=== PATIENT | female | born 1960 | race Caucasian/White ===

== ENCOUNTER 2016-06-29 16:15 | Outpatient (CLI) | payer OTHER | END 2016-06-29 16:16 | disposition home or self-care (01) | DX: L65.9 Nonscarring hair loss, unspecified (principal) ==

== ENCOUNTER 2017-02-22 06:24 | Outpatient (CLI) | payer OTHER ==
[2017-02-22 06:44] LABS: BASOPHILS % (AUTO) 0.6 %; EOSINOPHILS # (AUTO) 0.2 10^3/uL (0.0-0.7); EOSINOPHILS % (AUTO) 2.5 %; HCT - HEMATOCRIT 43.5 % (37.0-47.0); HGB - HEMOGLOBIN 14.9 g/dL (12.0-16.0); LYMPHOCYTES # (AUTO) 2.9 10^3/uL (1.5-3.5); LYMPHOCYTES % (AUTO) 35.8 %; MEAN CORPUSCULAR HEMOGLOBIN 30.1 pg (27.0-31.0); MEAN CORPUSCULAR HGB CONC 34.2 g/dL (32.0-36.0); MEAN PLATELET VOLUME 7.4 fL (7.9-10.8); MONOCYTES # (AUTO) 0.6 10^3/uL (0.0-1.0); NEUTROPHILS # (AUTO) 4.4 10^3/uL (1.5-6.6); NEUTROPHILS % (AUTO) 54.1 %; NUCLEATED RED BLOOD CELLS AUTO 0.1 /100WBC; RED BLOOD COUNT 4.94 10^6/uL (4.20-5.40); RED CELL DISTRIBUTION WIDTH 12.5 % (12.0-15.0); UNCORRECTED WHITE BLOOD COUNT 8.1 x10^3/uL; WHITE BLOOD COUNT 8.1 x10^3/uL (4.8-10.8)
[2017-02-22 07:03] LABS: ALBUMIN/GLOBULIN RATIO 1.3 (1.0-2.2); BILIRUBIN,TOTAL 0.9 mg/dL (0.2-1.0); CALCIUM 9.7 mg/dL (8.5-10.3); CREATININE 0.9 mg/dL (0.4-1.0); TOTAL PROTEIN 7.5 g/dL (6.7-8.2)
== END 2017-02-22 06:25 | disposition home or self-care (01) ==
LOC: LAB 06:24
PROVIDERS: ATTEND Family Medicine
DX: D50.9 Iron deficiency anemia, unspecified (principal)
CPT/HCPCS: 36415; 80053; 83540; 84466; 85025

== ENCOUNTER 2017-08-15 08:58 | Emergency (ER) | payer OTHER ==
[2017-08-15 10:27] VITALS: BP 150/87
--- NOTE | 2017-08-15 11:01 | ED Physician Documentation ---
PD HPI Fall - Stated complaint Stated Complaint: JAW PX/FALL - Chief complaint Chief Complaint: Ext Problem - History obtained from History obtained from: Patient, Other (employee health) - History of Present Illness Mechanism of injury: Slipped Fall distance: Standing position Where injury occurred: Work (in the parking lot on the way in to work) Timing - onset: Today Injury(ies) location: Face, Right Upper Extremity, Left Uppper Extremity, Left Lower Extremity Quality of pain: Pain Associated symptoms: No: LOC, AMS, Amnesia, Seizures, Ear drainage, Nasal drainage, Neck pain, Weakness, Paresthesias, Dyspnea, Nausea / vomiting, Hematemesis, Abdominal distension Symptoms improve with: Rest Worsens with: Movement, Palpation Contributing factors: No: Anticoagulated Similar symptoms before: Has not had sx before Recently seen: Not recently seen - Additional information Additional information: 56-year-old female was in her usual state of health on her way to work this morning in the parking lot she slipped and fell landing on her chin on the left side. She struck her left hand on the ground as well at the same time and she ended up on her back looking up. She complains of some pain in her jaw on the right side at the TMJ and over the mastoid on the right. She is complaining of some pain in the right shoulder and in the left wrist as well as the left knee. None of these pains are severe or cause restriction of movement. She is not having any malocclusion she does not have any clicking or popping when she opens her jaw she has not had nausea she has not had loss of consciousness she has had transient dizziness that is resolved. Review of Systems Constitutional: denies: Fever Eyes: denies: Decreased vision Ears: denies: Ear pain Nose: denies: Rhinorrhea / runny nose, Congestion Throat: denies: Sore throat Cardiac: denies: Chest pain / pressure Respiratory: denies: Dyspnea, Cough GI: denies: Abdominal Pain, Nausea, Vomiting : denies: Dysuria, Frequency Skin: denies: Rash Musculoskeletal: reports: Neck pain (chronic and unchanged), Joint pain. 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 : None HEENT: None Psych: None Musculoskeletal: Other Derm: None - Past Surgical History Past Surgical History: Yes General: Colonoscopy, EGD Ortho: Other /BUS ESCORT: Hysterectomy - Present Medications Home Medications: Ambulatory Orders Medication Instructions Recorded Confirmed Gabapentin [Neurontin] 300 mg PO TID 10/24/12 10/15/15 Losartan [Cozaar] 100 mg PO DAILY 10/24/12 10/15/15 Dicyclomine HCl [Bentyl] 10 mg PO Q6-8H PRN #30 capsule 11/12/12 10/15/15 busPIRone [Buspar] 7.5 mg PO BID 10/15/15 10/15/15 Famotidine 20 mg PO DAILY 08/15/17 - Allergies Allergies/Adverse Reactions: Allergies Allergy/AdvReac Type Severity Reaction Status Date / Time sulfamethoxazole Allergy Intermediate Rash Verified 08/15/17 09:09 [From ] trimethoprim [From ] Allergy Intermediate Rash Verified 08/15/17 09:09 naproxen AdvReac Intermediate muscle Verified 08/15/17 09:09 tightness - Social History Does the pt smoke?: No Smoking Status: Never smoker Does the pt drink ETOH?: No Does the pt have substance abuse?: No - Immunizations Immunizations are current?: Yes - POLST Patient has POLST: No PD ED PE NORMAL - Vitals Vital signs reviewed: Yes (hypertensive) - General General: Alert and oriented X 3, No acute distress, Well developed/nourished - HEENT HEENT: Atraumatic, PERRL, EOMI, Ears normal, Moist mucous membranes, Other ( There is mild point tenderness to the TMJ on the right and to the mastoid area. There is no swelling or crepitance and the patient is able to open her mouth wide without clicking or popping. She has no malocclusion. ) - Neck Neck: Supple, no meningeal sign, No bony TTP - Cardiac Cardiac: RRR, No murmur - Respiratory Respiratory: No respiratory distress, Clear bilaterally - Abdomen Abdomen: Soft, Non tender - Back Back: No CVA TTP, No spinal TTP - Derm Derm: Normal color, Warm and dry, No rash - Extremities Extremities: No deformity, No edema, Other (There is no specific tenderness to the right shoulder joint and she is able to activly move the shoulder in a full ROM and hold the shoulde in abduction. distal n/v is intact. The left wrist is similarly without significant pain and no swelling with normal ROM . The left knee is with stable ligmamnets and no evidnece of effusion. 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 I discussed that with the patient utilization of x-rays for evaluation of these area and between the 2 of us with shared decision making we have decided to forego x-ray examination at this time is it likely not demonstrate fracture. She does have a primary care doctor that she can follow-up with should she have progression of her symptoms that are beyond what is expected. Departure - Departure Disposition: 01 Home, Self Care Clinical Impression: Contusion of jaw Qualifiers: Encounter type: initial encounter Qualified Code(s): S00.83XA - Contusion of other part of head, initial encounter Right shoulder strain Qualifiers: Encounter type: initial encounter Qualified Code(s): S46.911A - Strain of unspecified muscle, fascia and tendon at shoulder and upper arm level, right arm , initial encounter Strain of left knee Qualifiers: Encounter type: initial encounter Qualified Code(s): S86.912A - Strain of unspecified muscle(s) and tendon(s) at lower leg level, left leg, initial encounter Strain of wrist, left Qualifiers: Encounter type: initial encounter Qualified Code(s): S66.912A - Strain of unspecified muscle, fascia and tendon at wrist and hand level, left hand, initial encounter Condition: Stable Instructions: ED Mechanical Fall Follow-Up: Neri Mcghee MD [Primary Care Provider] - Comments: Today we have documented the following areas of injury from this fall in the parking lot. There does appear to be a strain of the right shoulder the left wrist and the left knee. There is a contusion to the jaw which has resulted in pain to the right TMJ and there is some pain over the mastoid area. None of these areas are concerning enough to perform x-rays. There may be some progression of symptoms over the next 2 days and for symptoms that are intolerable follow-up with Dr. Mcghee or potential x-rays.
== END 2017-08-15 11:18 | disposition home or self-care (01) ==
LOC: ED 08:58
DX: S00.83XA Contusion of other part of head, initial encounter (principal); S46.911A Strain of unspecified muscle, fascia and tendon at shoulder and upper arm level, right arm, initial encounter; S66.912A Strain of unspecified muscle, fascia and tendon at wrist and hand level, left hand, initial encounter; S86.912A Strain of unspecified muscle(s) and tendon(s) at lower leg level, left leg, initial encounter; W01.0XXA Fall on same level from slipping, tripping and stumbling without subsequent striking against object, initial encounter; Y92.481 Parking lot as the place of occurrence of the external cause
CPT/HCPCS: 99283

== ENCOUNTER 2017-09-19 13:50 | Emergency (ER) | payer OTHER ==
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
[2017-09-19] MEDS ORDERED: DEXAMETHASONE 10 MG/ML VIAL PO STA (14:47)
[2017-09-19] MEDS ORDERED: ONDANSETRON ODT 4 MG TABLET TL STA (14:47)
[2017-09-19] MEDS ORDERED: HYDROcod/ACETAM 5/325 MG TABLET PO STA (14:47)
[2017-09-19] MEDS ORDERED: CHERRY SYRUP 10 ML UDC PO ONE (15:07)
[2017-09-19 15:54] VITALS: BP 153/99
--- NOTE | 2017-09-19 17:23 | Ultrasound Report ---
RIGHT LEG VENOUS DUPLEX: 09/19/2017 CLINICAL INDICATION: Right calf pain after a plane flight. TECHNIQUE: Real-time sonographic vascular imaging was performed by the load haul dump operator through the right lower extremity utilizing both color flow and Doppler spectral analysis. Multiple sales account representative static images were saved for review. FINDINGS: A right lower extremity venous sonogram is performed revealing the common femoral, superficial femoral, profunda femoris, and popliteal veins to be adequately visualized without intraluminal defects. There is normal venous compression, augmentation, phasicity, and spontaneity of venous flow. In the calf, the visualized more cephalad portions of posterior tibial and peroneal veins are grossly compressible, without filling defects. IMPRESSION: NO EVIDENCE OF DEEP VENOUS THROMBOSIS. SCANNING OVER THE REGION OF MAXIMAL PAIN REVEALS NO EVIDENCE OF SUPERFICIAL THROMBOPHLEBITIS. TD: 09/19/2017 17:21
== END 2017-09-19 15:55 | disposition home or self-care (01) ==
LOC: ED 13:50
DX: M79.604 Pain in right leg (principal); G57.91 Unspecified mononeuropathy of right lower limb; J45.909 Unspecified asthma, uncomplicated; E78.00 Pure hypercholesterolemia, unspecified
CPT/HCPCS: 93971; 99283; A9270; Q0162

== ENCOUNTER 2018-06-13 09:40 | Outpatient (CLI) | payer OTHER ==
--- NOTE | 2018-06-13 15:39 | XRAY Report ---
Reason: LEG PAIN,RIGHT Procedure Date: 06/13/2018 Accession Number: [id number] / [id number] Procedure: XR - Tib/Fib RT CPT Code: FULL RESULT: EXAM: RIGHT TIBIA/FIBULA RADIOGRAPHY EXAM DATE: 06/13/2018 10:06 AM. CLINICAL HISTORY: LEG Pain, right. COMPARISON: TIB/FIB RT 09/29/2017 10:06 AM. TECHNIQUE: 2 views. FINDINGS: Bones: Intramedullary alpa secured by means of one screw proximally and 2 screws distally, unchanged. Minimal cortical thickening and irregularity distally at site of old fracture. No acute fracture or other bone lesion. Joints: The visualized knee and ankle joints are normal. No effusions. Soft Tissues: Unremarkable. IMPRESSION: No acute disease. RADIA
--- NOTE | 2018-06-13 15:41 | XRAY Report ---
Reason: LEG PAIN,RIGHT Procedure Date: 06/13/2018 Accession Number: [id number] / [id number] Procedure: XR - Knee 2 View RT CPT Code: FULL RESULT: EXAM: RIGHT KNEE RADIOGRAPHY EXAM DATE: 06/13/2018 10:06 AM. CLINICAL HISTORY: LEG Pain, right. COMPARISON: None. TECHNIQUE: 2 views. FINDINGS: Bones: Intramedullary alpa in the tibia. No acute fracture or other bone lesion. Joints: Joint spaces well preserved, with minimal marginal lipping. No effusion. Soft Tissues: Unremarkable. IMPRESSION: No acute disease. RADIA
== END 2018-06-13 09:41 | disposition home or self-care (01) ==
LOC: DI 09:40
PROVIDERS: ATTEND Family Medicine
DX: M79.604 Pain in right leg (principal)

== ENCOUNTER 2018-07-12 13:50 | Emergency (ER) | payer BC, OTHER ==
[2018-07-12] MEDS ORDERED: SODIUM CHLORIDE 0.9% 1,000 ML IV ONE (14:11)
--- NOTE | 2018-07-12 14:14 | ED Physician Documentation ---
History of Present Illness - Stated complaint Stated Complaint: BLURRED VISION/HIGH BP - Chief complaint Chief Complaint: Neuro - History obtained from History obtained from: Patient - History of Present Illness Timing: Yesterday Pain level max: 0 Pain level now: 0 Improved by: nothing Worsened by: nothing - Additonal information Additional information: 57 year old female states that she "just doesn't feel right". States her vision is slightly blurry today. Kiester off balance today. states felt like she had heartburn yesterday. this resolved. started on hctz 3 months ago. Has had potassium issues in the past. 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 : None HEENT: None Psych: None Musculoskeletal: Other Derm: None - Past Surgical History Past Surgical History: Yes General: Colonoscopy, EGD Ortho: Other /LINE MOVER: Hysterectomy - Present Medications Home Medications: Ambulatory Orders Medication Instructions Recorded Confirmed Gabapentin [Neurontin] 300 mg PO TID 10/24/12 07/12/18 Dicyclomine HCl [Bentyl] 10 mg PO Q6-8H PRN #30 capsule 11/12/12 07/12/18 busPIRone [Buspar] 7.5 mg PO BID 10/15/15 07/12/18 Famotidine 20 mg PO DAILY 08/15/17 07/12/18 Cephalexin [Keflex] 500 mg PO Q6H #20 capsule 07/12/18 Losartan/Hydrochlorothiazide 1 tab PO DAILY 07/12/18 07/12/18 [Losartan-Hctz 100-12.5 mg Tab] - Allergies Allergies/Adverse Reactions: Allergies Allergy/AdvReac Type Severity Reaction Status Date / Time sulfamethoxazole Allergy Intermediate Rash Verified 09/19/17 14:01 [From ] trimethoprim [From ] Allergy Intermediate Rash Verified 09/19/17 14:01 naproxen AdvReac Intermediate muscle Verified 07/12/18 13:57 tightness - Social History Does the pt smoke?: No Smoking Status: Never smoker Does the pt drink ETOH?: No Does the pt have substance abuse?: No - Immunizations Immunizations are current?: Yes - POLST Patient has POLST: No PD ED PE NORMAL - Vitals Vital signs reviewed: Yes - General General: Alert and oriented X 3, No acute distress, Well developed/nourished - HEENT HEENT: PERRL, Ears normal, Moist mucous membranes, Pharynx benign - Neck Neck: Supple, no meningeal sign - Cardiac Cardiac: RRR, Strong equal pulses - Respiratory Respiratory: No respiratory distress, Clear bilaterally - Abdomen Abdomen: Soft, Non tender, Non distended - Back Back: No spinal TTP - Derm Derm: Warm and dry - Extremities Extremities: No edema, No calf tenderness / cord - Neuro Neuro: Alert and oriented X 3, managed care director 2-12 intact, No sensory deficit Eye Opening: Spontaneous Motor: Obeys Commands Verbal: Oriented GCS Score: 15 - Psych Psych: Normal mood, Normal affect - Free text exam Free text exam: NIHSS 0 at 1417 Results - Vitals Vitals: Vital Signs - 24 hr 07/12/18 07/12/18 07/12/18 13:54 15:16 15:30 Temperature 36 C L Heart Rate 69 78 82 Respiratory 18 16 20 Rate Blood Pressure 149/76 H 128/72 133/65 H O2 Saturation 99 100 97 07/12/18 07/12/18 16:00 16:48 Temperature 36.0 C L Heart Rate 78 79 Respiratory 19 19 Rate Blood Pressure 132/81 H 127/74 O2 Saturation 99 99 Oxygen O2 Source Room air - EKG (time done) 1359 Rate: Rate (enter#) (62) Rhythm: NSR [place]: Normal Intervals: Normal ID QRS: Normal Ischemia: Non specific changes Compare to prior EKG: Unchanged from prior EKG - Labs Labs: Laboratory Tests 07/12/18 07/12/18 07/12/18 14:19 14:19 14:19 WBC 8.6 RBC 4.71 Hgb 14.4 Hct 41.2 MCV 87.5 MCH 30.6 MCHC 34.9 RDW 12.8 Plt Count 320 MPV 7.3 L Neut # (Auto) 4.7 Lymph # (Auto) 3.1 [place] # (Auto) 0.6 Eos # (Auto) 0.1 Baso # (Auto) 0.1 Absolute Nucleated RBC 0.01 Nucleated RBC % 0.1 Sodium 138 Potassium 3.1 L Chloride 101 Carbon Dioxide 29 Anion Gap 8.0 BUN 15 Creatinine 1.0 Estimated GFR (MDRD) 57 L Glucose 86 Calcium 9.7 Phosphorus 3.3 Magnesium 2.2 Total Bilirubin 0.6 AST 29 ALT 30 Alkaline Phosphatase 87 Troponin I < 0.04 Total Protein 7.1 Albumin 4.1 Globulin 3.0 Albumin/Globulin Ratio 1.4 Lipase 41 Urine Color Urine Clarity Urine pH Ur Specific [place] Urine Protein Urine Glucose (UA) Urine Ketones Urine Occult Blood Urine Nitrite Urine Bilirubin Urine Urobilinogen Ur Leukocyte Esterase Urine RBC Urine WBC Urine WBC Clumps Ur Epithelial Cells Ur Squamous Epith Cells Urine Bacteria Ur Microscopic Review Urine Culture Comments 07/12/18 15:45 WBC RBC Hgb Hct MCV MCH MCHC RDW Plt Count MPV Neut # (Auto) Lymph # (Auto) [place] # (Auto) Eos # (Auto) Baso # (Auto) Absolute Nucleated RBC Nucleated RBC % Sodium Potassium Chloride Carbon Dioxide Anion Gap BUN Creatinine Estimated GFR (MDRD) Glucose Calcium Phosphorus Magnesium Total Bilirubin AST ALT Alkaline Phosphatase Troponin I Total Protein Albumin Globulin Albumin/Globulin Ratio Lipase Urine Color YELLOW Urine Clarity CLEAR Urine pH 5.5 Ur Specific [place] 1.010 Urine Protein NEGATIVE Urine Glucose (UA) NEGATIVE Urine Ketones NEGATIVE Urine Occult Blood NEGATIVE Urine Nitrite NEGATIVE Urine Bilirubin NEGATIVE Urine Urobilinogen 0.2 (NORMAL) Ur Leukocyte Esterase SMALL H Urine RBC 0-5 Urine WBC 11-25 H Urine WBC Clumps PRESENT Ur Epithelial Cells FEW Transitional Ur Squamous Epith Cells MANY Squamous H Urine Bacteria Moderate H Ur Microscopic Review INDICATED Urine Culture Comments NOT INDICATED - Rads (name of study) cxr Radiology: Prelim report reviewed, EMP read contemporaneously, See rad report (No acute disease) PD MEDICAL DECISION MAKING - ED course Complexity details: reviewed results, re-evaluated patient, considered differential, d/w patient ED course: Patient is a 57-year-old female who presents to the emergency department with complaints of not feeling right. Does have a UTI and will treat for this. Also found to have mild hypokalemia. Will treat for this as well. No signs of stroke, acute coronary syndrome. She feels better in the emergency department and symptoms resolved. Patient counseled regarding signs and symptoms for which I believe and urgent re-evaluation would be necessary. Patient with good understanding of and agreement to plan and is comfortable going home at this time This document was made in part using voice recognition software. While efforts are made to proofread this document, sound alike and grammatical errors may occur. Departure - Departure Disposition: 01 Home, Self Care Clinical Impression: Hypokalemia UTI (urinary tract infection) Qualifiers: Urinary tract infection type: acute cystitis Hematuria presence: without hematuria Qualified Code(s): N30.00 - Acute cystitis without hematuria Condition: Good Instructions: ED Potassium Deficiency, ED UTI Cystitis Female Follow-Up: Neri Mcghee MD [Primary Care Provider] - Within 1 week Prescriptions: Cephalexin [Keflex] 500 mg PO Q6H #20 capsule Comments: Take all antibiotics until gone. Return if you worsen. This should improve with the antibiotics. You should also have your potassium rechecked in a week with your doctor. Discharge Date/Time: 07/12/18 16:51
[2018-07-12 14:24] LABS: BASOPHILS # (AUTO) 0.1 10^3/uL (0.0-0.1); BASOPHILS % (AUTO) 0.6 %; EOSINOPHILS # (AUTO) 0.1 10^3/uL (0.0-0.7); EOSINOPHILS % (AUTO) 1.5 %; HGB - HEMOGLOBIN 14.4 g/dL (12.0-16.0); LYMPHOCYTES # (AUTO) 3.1 10^3/uL (1.5-3.5); LYMPHOCYTES % (AUTO) 35.9 %; MEAN CORPUSCULAR HEMOGLOBIN 30.6 pg (27.0-31.0); MEAN CORPUSCULAR HGB CONC 34.9 g/dL (32.0-36.0); MEAN CORPUSCULAR VOLUME 87.5 fL (81.0-99.0); MEAN PLATELET VOLUME 7.3 fL (7.9-10.8); MONOCYTES # (AUTO) 0.6 10^3/uL (0.0-1.0); MONOCYTES % (AUTO) 6.7 %; NEUTROPHILS # (AUTO) 4.7 10^3/uL (1.5-6.6); NEUTROPHILS % (AUTO) 55.3 %; PLT - PLATELET COUNT 320 10^3/uL (130-450); RED BLOOD COUNT 4.71 10^6/uL (4.20-5.40); RED CELL DISTRIBUTION WIDTH 12.8 % (12.0-15.0); WHITE BLOOD COUNT 8.6 x10^3/uL (4.8-10.8)
[2018-07-12 14:37] LABS: ALBUMIN 4.1 g/dL (3.2-5.5); ALBUMIN/GLOBULIN RATIO 1.4 (1.0-2.2); BILIRUBIN,TOTAL 0.6 mg/dL (0.2-1.0); CALCIUM 9.7 mg/dL (8.5-10.3); MAGNESIUM 2.2 mg/dL (1.7-2.8); PHOSPHORUS 3.3 mg/dL (2.5-4.6); TOTAL PROTEIN 7.1 g/dL (6.7-8.2)
[2018-07-12] MEDS ORDERED: POTASSIUM BICARB 25 MEQ TABLET PO STA (14:52)
--- NOTE | 2018-07-12 15:08 | XRAY Report ---
Reason: Chest Pain Procedure Date: 07/12/2018 Accession Number: [id number] / [id number] Procedure: XR - Chest 1 View X-Ray CPT Code: 16046 FULL RESULT: EXAM: CHEST RADIOGRAPHY EXAM DATE: 07/12/2018 03:00 PM. CLINICAL HISTORY: Chest Pain. COMPARISON: CHEST 2 VIEW PA/LAT 10/15/2015 5:27 PM. TECHNIQUE: 1 view. FINDINGS: Lungs/Pleura: Clear. No effusion or pneumothorax. Mediastinum: Moderate cardiomegaly, probably unchanged. Upper lobe vessels not distended. Other: Mild scoliosis, degenerative changes. IMPRESSION: No acute disease. RADIA
[2018-07-12 16:12] LABS: BILIRUBIN,URINE NEGATIVE (NEGATIVE); GLUCOSE, URINE (UA) NEGATIVE (NEGATIVE); KETONES,URINE (UA) NEGATIVE (NEGATIVE); LEUKOCYTE ESTERASE, URINE SMALL (NEGATIVE); NITRITE,URINE NEGATIVE (NEGATIVE); OCCULT BLOOD,URINE NEGATIVE (NEGATIVE); PH,URINE 5.5 PH (5.0-7.5); PROTEIN,URINE NEGATIVE (NEGATIVE); UROBILINOGEN,URINE 0.2 (NORMAL) E.U./dL (NORMAL)
[2018-07-12 16:16] LABS: CLARITY,URINE CLEAR (CLEAR)
[2018-07-12 16:39] LABS: BACTERIA,URINE Moderate /HPF (None Seen); EPITHELIAL CELLS,UR FEW Transitional /HPF (<= Few); RBC,URINE 0-5 /HPF (0-5); SQUAMOUS EPITHELIAL CELL,UR MANY Squamous (<= Few); WBC CLUMPS,URINE PRESENT
[2018-07-12 16:56] VITALS: BP 127/74
== END 2018-07-12 16:51 | disposition home or self-care (01) ==
LOC: ED 13:50
DX: N30.00 Acute cystitis without hematuria (principal); E78.00 Pure hypercholesterolemia, unspecified
CPT/HCPCS: 36415; 71045; 80053; 81001; 83690; 83735; 84100; 84484; 85025; 93005; 96360; 96361; 99283; 99284; A9270; 81003; 87086

== ENCOUNTER 2018-07-18 08:51 | Outpatient (CLI) | payer BC ==
[2018-07-18 12:36] LABS: CALCIUM 9.4 mg/dL (8.5-10.3); CREATININE 0.7 mg/dL (0.4-1.0)
== END 2018-07-18 23:59 | disposition home or self-care (01) ==
LOC: LAB.WCP 08:51
PROVIDERS: ATTEND Family Medicine
DX: E87.6 Hypokalemia (principal)
CPT/HCPCS: 36415; 80048

== ENCOUNTER 2018-12-26 14:49 | Outpatient (CLI) | payer BC ==
--- NOTE | 2018-12-26 15:49 | XRAY Report ---
Reason: METATARSALGIA,RIGHT Procedure Date: 12/26/2018 Accession Number: [id number] / [id number] Procedure: XR - Foot 3 View RT CPT Code: FULL RESULT: EXAM: RIGHT FOOT RADIOGRAPHY EXAM DATE: 12/26/2018 03:02 PM. CLINICAL HISTORY: Metatarsalgia, right. COMPARISON: None. TECHNIQUE: 3 views. FINDINGS: Bones: Intramedullary alpa right tibia. No acute fractures or bone lesions. Small calcaneal spurs. Joints: Advanced first metatarsophalangeal joint degenerative narrowing, spurring, and slight medial subluxation of the proximal phalanx.. Soft Tissues: Unremarkable IMPRESSION: Right first MTP articulation advanced degenerative change. Status post ORIF right tibia. No acute findings. RADIA
== END 2018-12-26 14:50 | disposition home or self-care (01) ==
LOC: DI 14:49
PROVIDERS: ATTEND Family Medicine
DX: M19.071 Primary osteoarthritis, right ankle and foot (principal)

== ENCOUNTER 2019-01-10 07:50 | Outpatient (CLI) | payer BC ==
--- NOTE | 2019-01-11 08:25 | Mammography Report ---
Reason: SCREENING MAMMO Procedure Date: 01/10/2019 Accession Number: [id number] / [id number] Procedure: MANJU - Screening Mammo w/Eric CPT Code: FULL RESULT: EXAM: Screening Mammo w/Eric DATE: 01/10/2019 8:22 AM CLINICAL HISTORY: Screening encounter. 10 year history of estrogen therapy. TECHNIQUE: (B) - Bilateral CC, laterally exaggerated CC, MLO views were obtained. COMPARISON: 04/07/2016 through 10/01/2010. PARENCHYMAL PATTERN: (A) - The breast(s) demonstrate(s) scattered fibroglandular densities. FINDINGS: There are no suspicious masses, calcifications, or areas of distortion. IMPRESSION: Negative examination. BI-RADS category 1. RECOMMENDATION: (ANNUAL) - Recommend routine annual screening mammography. BI-RADS CATEGORY: (1) - Negative. STANDARD QUALIFYING STATEMENTS: 1. This examination was not reviewed with the aid of Computer-Aided Detection (CAD). 2. A negative or benign imaging report should not preclude biopsy if clinically suspicious findings are present. 3. Dense breasts may obscure an underlying neoplasm. 4. This examination was reviewed with the aid of 3D breast imaging (tomosynthesis).
== END 2019-01-10 07:51 | disposition home or self-care (01) ==
LOC: DI 07:50
DX: Z12.31 Encounter for screening mammogram for malignant neoplasm of breast (principal)
CPT/HCPCS: 77063; 77067

== ENCOUNTER 2019-11-25 13:07 | Outpatient (CLI) | payer BC ==
--- NOTE | 2019-11-26 12:15 | Ultrasound Report ---
LIMITED ULTRASOUND OF LEFT BREAST: 11/25/2019 CLINICAL: Palpable left breast lump. Comparison is made to exams dated: 01/10/2019, 11/25/2019 mammogram, 04/07/2016 mammogram, and 05/16/20 13 mammogram - [facility]. Real-time ultrasound of the left breast 8 o'clock region was performed. Stokes scale images of the lashon l-time examination were reviewed. No significant abnormalities were seen sonographically in the left breast at palpable abnormality sit e. IMPRESSION: NEGATIVE There is no sonographic evidence of malignancy. Patient was advised to monitor the area for significant change. A 1 year screening mammogram is elizabeth mmended. Exam results and recommendation were conveyed to the patient by the Ortho/Prosthetic Aide. This exam was interpreted at Station ID: [id number]. Electronically Signed By: Quentin Garrison M.D. slc/:11/25/2019 14:30:13 Ultrasound BI-RADS: 1 Negative BI-RADS CATEGORY: (1) - 1 RECOMMENDATION: (ANNUAL) - Recommend routine annual screening mammography. [id number] 1 year screening LATERALITY: (B)
--- NOTE | 2019-11-26 12:15 | Mammography Report ---
BILATERAL DIGITAL DIAGNOSTIC MAMMOGRAM 3D/2D WITH CAD: 11/25/2019 CLINICAL: Palpable left breast lump by physician. Comparison is made to exams dated: 01/10/2019, 04/07/2016 mammogram and 05/16/2013 mammogram - [facility]. The tissue of both breasts is heterogeneously dense. This may lower the sens itivity of mammography. Current study was also evaluated with a Computer Aided Detection (CAD) system. No significant masses, calcifications, or other findings are seen in either breast. No finding demons trated in the lower inner left breast at the site of palpable abnormality. IMPRESSION: INCOMPLETE: NEEDS ADDITIONAL IMAGING EVALUATION No significant masses, calcifications, or other findings are seen in either breast. Targeted ultrasound of the left breast is recommended for the palpable abnormality and will immediate ly follow. This exam was interpreted at Station ID: [id number]. NOTE: For mammograms, a report in lay terms will be sent to the patient. Approximately 15% of breast malignancies will not be visualized mammographically. In the management of a palpable breast mass, a negative mammogram must not discourage biopsy of a clinically suspicious lesion. Electronically Signed By: Quentin Garrison M.D. slc/:11/25/2019 14:26:35 ACR BI-RADS Category 0: Incomplete 3340F PARENCHYMAL PATTERN: (D) - The breast(s) demonstrate(s) heterogeneously dense fibroglandular frederick dejesus. BI-RADS CATEGORY: (0) - 0 Ultrasound [id number] Immediate follow-up B
== END 2019-11-25 13:08 | disposition home or self-care (01) ==
LOC: DI 13:07
PROVIDERS: ATTEND Family Medicine
DX: N63.24 Unspecified lump in the left breast, lower inner quadrant (principal)
CPT/HCPCS: 76642; 77066

== ENCOUNTER 2020-06-25 15:32 | Outpatient (CLI) | payer BC | END 2020-06-25 15:33 | disposition home or self-care (01) | LOC: LAB.R 15:32 | PROVIDERS: ATTEND Family Medicine | DX: R07.0 Pain in throat (principal); Z20.828 Contact with and (suspected) exposure to other viral communicable diseases ==

== ENCOUNTER 2020-07-21 10:39 | Outpatient (CLI) | payer BC ==
[2020-07-21 18:14] LABS: BASOPHILS # (AUTO) 0.1 10^3/uL (0.0-0.1); BASOPHILS % (AUTO) 0.8 %; EOSINOPHILS # (AUTO) 0.2 10^3/uL (0.0-0.7); EOSINOPHILS % (AUTO) 2.9 %; HGB - HEMOGLOBIN 15.8 g/dL (12.0-16.0); LYMPHOCYTES # (AUTO) 2.5 10^3/uL (1.5-3.5); MEAN CORPUSCULAR HGB CONC 33.9 g/dL (32.0-36.0); MEAN CORPUSCULAR VOLUME 88.4 fL (81.0-99.0); MEAN PLATELET VOLUME 9.7 fL (7.9-10.8); MONOCYTES # (AUTO) 0.9 10^3/uL (0.0-1.0); MONOCYTES % (AUTO) 11.9 %; NEUTROPHILS # (AUTO) 3.6 10^3/uL (1.5-6.6); NEUTROPHILS % (AUTO) 50.3 %; PLT - PLATELET COUNT 287 10^3/uL (130-450); RED BLOOD COUNT 5.27 10^6/uL (4.20-5.40); RED CELL DISTRIBUTION WIDTH 12.5 % (12.0-15.0); WHITE BLOOD COUNT 7.2 x10^3/uL (4.8-10.8)
[2020-07-21 18:43] LABS: ALBUMIN 4.3 g/dL (3.2-5.5); ALBUMIN/GLOBULIN RATIO 1.2 (1.0-2.2); ALKALINE PHOSPHATASE 75 IU/L (42-121); ALT ALANINE AMINOTRANSFERASE 41 IU/L (10-60); AST ASPARTATE AMINOTRANSFERASE 43 IU/L (10-42); BILIRUBIN,TOTAL 0.8 mg/dL (0.2-1.0); BUN - BLOOD UREA NITROGEN 15 mg/dL (6-20); CALCIUM 10.3 mg/dL (8.5-10.3); CARBON DIOXIDE - CO2 28 mmol/L (21-32); CHLORIDE 96 mmol/L (101-111); CHOLESTEROL 210 mg/dL; CREATININE 1.1 mg/dL (0.4-1.0); GLUCOSE 96 mg/dL (70-100); HDL CHOLESTEROL 70 mg/dL; LDL CHOLESTEROL,CALCULATED 116 mg/dL; LDL/HDL RATIO 1.7 (<4.4); VLDL CHOLESTEROL 24 mg/dL
== END 2020-07-21 23:59 | disposition home or self-care (01) ==
LOC: LAB.WCP 10:39
PROVIDERS: ATTEND Nurse Practitioner Family
DX: E87.6 Hypokalemia (principal); D50.9 Iron deficiency anemia, unspecified; I10 Essential (primary) hypertension; E78.5 Hyperlipidemia, unspecified
CPT/HCPCS: 36415; 80053; 80061; 83721; 84443; 85025

== ENCOUNTER 2021-06-02 16:18 | Outpatient (CLI) | payer BC ==
--- NOTE | 2021-06-02 17:03 | XRAY Report ---
PROCEDURE: Knee 4 View LT INDICATIONS: L KNEE PX TECHNIQUE: 3 views of the left knee(s) were acquired. COMPARISON: None. FINDINGS: Bones: No fractures or dislocations. No suspicious bony lesions. Mild left knee tricompartmental os teophytic degenerative changes. At the dominant. Partially visualized intramedullary alpa with proxima l interlocking screw in the right tibia. Soft tissues: No joint effusion. No suspicious soft tissue calcifications. IMPRESSION: Mild left knee tricompartmental osteoarthritis. Reviewed by: Matilde Ac MD, PhD on 06/02/2021 5:02 PM PST Approved by: Matilde Ac MD, PhD on 06/02/2021 5:02 PM PST Station ID: [id number]
== END 2021-06-02 16:19 | disposition home or self-care (01) ==
LOC: DI.N 16:18
PROVIDERS: ATTEND Physician Assistant
DX: M17.12 Unilateral primary osteoarthritis, left knee (principal)

== ENCOUNTER 2021-06-07 09:04 | Day surgery (SDC) | payer BC ==
[2021-06-07] MEDS ORDERED: LACTATED RINGERS 1,000 ML IV ONE ×3 (09:16→11:27)
--- NOTE | 2021-06-07 09:52 | ANESTHESIA ---
Pre-Anesthesia VS, & Labs - Diagnosis GERD, history of polyps - Procedure EGD, Colonoscopy Height: 5 ft 2 in Weight (kg): 82.6 kg Body Mass Index: 33.3 BMI Classification: Obese - NPO >8 hours - Is Patient ?: No Home Medications and Allergies Home Medications: Ambulatory Orders Acetaminophen [Tylenol] 2 tab PO PRN PRN 06/04/21 Diclofenac Sodium [Voltaren Arthritis Pain] 20 gm TP PRN PRN 06/04/21 guaiFENesin [Mucinex] 1 tab PO PRN PRN 06/04/21 Gabapentin [Neurontin] 300 mg PO TID 10/24/12 busPIRone [Buspar] 7.5 mg PO BID 10/15/15 Famotidine 20 mg PO DAILY 08/15/17 Losartan/Hydrochlorothiazide [Losartan-Hctz 100-12.5 mg Tab] 1 tab PO DAILY 07/12/18 Acetaminophen [Tylenol] 2 tab PO PRN PRN 06/04/21 Diclofenac Sodium [Voltaren Arthritis Pain] 20 gm TP PRN PRN 06/04/21 guaiFENesin [Mucinex] 1 tab PO PRN PRN 06/04/21 Allergies/Adverse Reactions: Allergies Allergy/AdvReac Type Severity Reaction Status Date / Time sulfamethoxazole Allergy Intermediate Rash Verified 09/19/17 14:01 [From Febra] trimethoprim [From Febra] Allergy Intermediate Rash Verified 09/19/17 14:01 almond Allergy Unknown Verified 07/13/18 15:59 sucralose Allergy Unknown Verified 07/13/18 15:59 [From Splenda (sucralose)] naproxen AdvReac Intermediate muscle Verified 07/12/18 13:57 tightness Anes History & Medical History - Anesthetic History Anesthesia Complications: reports: No previous complications - Medical History Cardiovascular: reports: High cholesterol Pulmonary: reports: Asthma Gastrointestinal: reports: GERD, C.difficile Urinary: reports: None Musculoskeletal: reports: Osteoarthritis, Other Endocrine/Autoimmune: reports: None Blood Disorders: reports: None Skin: reports: None Smoking Status: Never smoker History of Cancer?: No - Surgical History General: reports: Colonoscopy, EGD Gynecologic: reports: Hysterectomy, Oophrectomy Orthopedic: reports: Other Exam General: Alert, Oriented x3 Dental: WNL Mouth Opening: Greater than 4 Fingerbreadths Neck Mobility: Normal Mallampati classification: II Respiratory: Lungs clear Cardiovascular: Regular rate Plan Anesthesia Type: Total IV Consent for Procedure(s) Verified and Reviewed: No Code Status: Attempt Resuscitation ASA classification: 2-Mild systemic disease Is this case an emergency?: No
[2021-06-07] MEDS ORDERED: PROPOFOL 500 MG/50 ML 500 MG/50 ML VIAL ONE (11:23)
[2021-06-07] MEDS ORDERED: PROPOFOL 200 MG/20 ML VIAL IVP ONE (11:23)
[2021-06-07] MEDS ORDERED: LIDOCAINE-MPF 2% 5 ML VIAL ONE (11:23)
[2021-06-07 11:43] VITALS: BP 125/67
--- NOTE | 2021-06-07 17:42 | ANESTHESIA POST OP EVALUATION ---
Anesthesia Post Eval - Post Anesthesia Eval Vitals: Last Vital Signs Temp 36.2 C L 06/07/21 11:27 Pulse 68 06/07/21 11:42 Resp 18 06/07/21 11:42 BP 125/67 06/07/21 11:42 Pulse Ox 98 06/07/21 11:42 CV Function Including HR & BP: Stable Pain Control: Satisfactory Nausea & Vomiting: Negative Mental Status: Baseline Respiratory Status: Airway Patent Hydration Status: Satisfactory Anesthesia Complications: None
== END 2021-06-07 09:05 | disposition home or self-care (01) ==
LOC: SDS 09:04
PROVIDERS: ATTEND Surgery
PROC: 0DB68ZX Excision of Stomach, Via Natural or Artificial Opening Endoscopic, Diagnostic (ICD-10-PCS; 2021-06-07)
PROC: 0DB58ZX Excision of Esophagus, Via Natural or Artificial Opening Endoscopic, Diagnostic (ICD-10-PCS; 2021-06-07)
PROC: 0DBN8ZX Excision of Sigmoid Colon, Via Natural or Artificial Opening Endoscopic, Diagnostic (ICD-10-PCS; principal; 2021-06-07 10:15)
PROC: 0DB98ZX Excision of Duodenum, Via Natural or Artificial Opening Endoscopic, Diagnostic (ICD-10-PCS; 2021-06-07 10:15)
DX: Z12.11 Encounter for screening for malignant neoplasm of colon (principal); K57.30 Diverticulosis of large intestine without perforation or abscess without bleeding; K63.5 Polyp of colon; K64.4 Residual hemorrhoidal skin tags; K64.8 Other hemorrhoids; K21.9 Gastro-esophageal reflux disease without esophagitis; K22.0 Achalasia of cardia; K29.50 Unspecified chronic gastritis without bleeding; K44.9 Diaphragmatic hernia without obstruction or gangrene; J45.909 Unspecified asthma, uncomplicated; I10 Essential (primary) hypertension; Z80.0 Family history of malignant neoplasm of digestive organs
CPT/HCPCS: 43239; 45380; J7120

== ENCOUNTER 2021-11-15 07:50 | Day surgery (SDC) | payer BC ==
[2021-11-15] MEDS ORDERED: CEFAZOLIN SODIUM IN 0.9 % NACL 2 GM/50 ML BAG IV ONE (08:03)
[2021-11-15] MEDS ORDERED: LACTATED RINGERS 1,000 ML IV ONE ×3 (08:19→10:23)
[2021-11-15] MEDS ORDERED: BUPIVACAINE 0.5% PF 30 ML VIAL ONE (08:35)
[2021-11-15] MEDS ORDERED: LIDOCAINE 2%-EPI 1:100000 20 ML MDV ONE (08:35)
--- NOTE | 2021-11-15 08:36 | ANESTHESIA ---
Pre-Anesthesia VS, & Labs - Diagnosis paraspinous lipoma - Procedure lipoma excision Vital Signs: Temp Pulse Resp BP Pulse Ox 36.7 C 88 21 133/76 H 98 11/15/21 08:13 11/15/21 08:13 11/15/21 08:13 11/15/21 08:13 11/15/21 08:13 Height: 5 ft 3 in Weight (kg): 88 kg Body Mass Index: 34.3 BMI Classification: Obese - NPO >8 hours - Is Patient ?: No Home Medications and Allergies Home Medications: Ambulatory Orders Omeprazole Magnesium [Prilosec] 20 mg PO DAILY 11/08/21 Semaglutide [Wegovy] 1 mg SQ OAW 11/08/21 Gabapentin [Neurontin] 300 mg PO TID 10/24/12 busPIRone [Buspar] 7.5 mg PO BID 10/15/15 Losartan/Hydrochlorothiazide [Losartan-Hctz 100-12.5 mg Tab] 1 tab PO DAILY 07/12/18 Diclofenac Sodium [Voltaren Arthritis Pain] 20 gm TP PRN PRN 06/04/21 Omeprazole Magnesium [Prilosec] 20 mg PO DAILY 11/08/21 Semaglutide [Wegovy] 1 mg SQ OAW 11/08/21 Allergies/Adverse Reactions: Allergies Allergy/AdvReac Type Severity Reaction Status Date / Time sulfamethoxazole Allergy Intermediate Rash Verified 09/19/17 14:01 [From ] trimethoprim [From ] Allergy Intermediate Rash Verified 09/19/17 14:01 almond Allergy Unknown Verified 07/13/18 15:59 hazelnut Allergy Anaphylaxis Verified 11/08/21 12:15 sucralose Allergy diarrhea Verified 11/08/21 12:15 [From Splenda (sucralose)] naproxen AdvReac Intermediate muscle Verified 07/12/18 13:57 tightness amoxicillin [From Augmentin] AdvReac Unknown Verified 11/15/21 08:02 clavulanic acid AdvReac Unknown Verified 11/15/21 08:02 [From Augmentin] lavender (Lavandula AdvReac Unknown Verified 11/15/21 08:13 angustifolia) Anes History & Medical History - Anesthetic History Anesthesia Complications: reports: No previous complications Family history of Anesthesia Complications: Denies Family history of Malignant Hyperthermia: Denies - Medical History Cardiovascular: reports: Hypertension Pulmonary: reports: Asthma Gastrointestinal: reports: GERD, Hiatal hernia, Colon polyps, C.difficile, Diverticulitis, Other Urinary: reports: None Musculoskeletal: reports: Osteoarthritis, Fibromyalgia, Scoliosis, Chronic back pain Endocrine/Autoimmune: reports: None Blood Disorders: reports: None Skin: reports: None Smoking Status: Never smoker Psychosocial: reports: Anxiety - Surgical History General: reports: Colonoscopy, EGD Gynecologic: reports: Hysterectomy, Oophrectomy Orthopedic: reports: Other Exam General: Alert, Oriented x3, Cooperative Dental: WNL Mouth Openin Fingerbreadth Neck Mobility: Normal Mallampati classification: II Thyromental Distance: 4-6 cm Respiratory: Lungs clear Cardiovascular: Regular rate Plan Anesthesia Type: General Consent for Procedure(s) Verified and Reviewed: Yes Code Status: Attempt Resuscitation ASA classification: 3-Severe systemic disease Is this case an emergency?: No
[2021-11-15] MEDS ORDERED: HYDROmorphone 0.5 MG/0.5 ML SYRINGE IVP PRN (08:48)
[2021-11-15] MEDS ORDERED: ATROPINE ABBOJECT 1 MG/10 ML SYRINGE IVP PRN (08:48)
[2021-11-15] MEDS ORDERED: NALOXONE 0.4 MG/ML VIAL IVP PRN (08:48)
[2021-11-15] MEDS ORDERED: ePHEDrine 50 MG/ML VIAL IVP PRN (08:48)
[2021-11-15] MEDS ORDERED: METOCLOPRAMIDE 10 MG/2 ML VIAL IVP PRN (08:48)
[2021-11-15] MEDS ORDERED: ONDANSETRON 4 MG/2 ML VIAL IVP PRN (08:48)
[2021-11-15] MEDS ORDERED: MORPHINE 2 MG/ML CARPUJECT IVP PRN (08:48)
[2021-11-15] MEDS ORDERED: fentaNYL 100 MCG/2 ML VIAL IVP PRN (08:48)
[2021-11-15] MEDS ORDERED: LIDOCAINE 2%-EPI 1:100000 20 ML MDV SUBQ ONE (08:58)
[2021-11-15] MEDS ORDERED: BUPIVACAINE 0.5% PF 30 ML VIAL INFIL ONE (08:59)
[2021-11-15] MEDS ORDERED: LACTATED RINGERS 1,000 ML IV SCH (09:00)
[2021-11-15] MEDS ORDERED: PROPOFOL 200 MG/20 ML VIAL IVP ONE (09:17)
[2021-11-15] MEDS ORDERED: ROCURONIUM 50 MG/5 ML VIAL ONE (09:17)
[2021-11-15] MEDS ORDERED: LIDOCAINE-MPF 2% 5 ML VIAL ONE (09:17)
[2021-11-15] MEDS ORDERED: fentaNYL 100 MCG/2 ML VIAL ONE (09:19)
[2021-11-15] MEDS ORDERED: MIDAZOLAM 2 MG/2 ML VIAL ONE (09:19)
[2021-11-15] MEDS ORDERED: DEXAMETHASONE 4 MG/ML VIAL ONE (09:44)
[2021-11-15] MEDS ORDERED: ONDANSETRON 4 MG/2 ML VIAL ONE (09:44)
--- NOTE | 2021-11-15 09:53 | OPERATIVE REPORT ---
Operative Report - General Procedure Date: 11/15/21 Planned Procedure: Excision of paraspinous lipoma Pre-Op Diagnosis: Painful right paraspinous lipoma Procedure Performed: Excision of paraspinous lipoma Post Op Diagnosis: Painful right paraspinous lipoma - Procedure Note Primary Surgeon: Florencio Anesthesia Provider: JOHANNE Diaz Anesthesia Technique: General ET tube Pathology: Lipoma to pathology in formalin Estimated Blood Loss (mL): 5 Indications: Painful paraspinous lipoma Findings: 1.5 cm, well circumscribed lipomatous mass Complications: None apparent - Other Other Information/Narrative: After obtaining informed consent, the patient is brought to the operating room on the transportation center. The prone position with padding of all bony prom inences and placement of appropriate monitors. The back is prepped and draped in the standard surgical fashion. A timeout was held per scope protocol. All elements of the surgical safety checklist were followed before, during, and after the procedure. We began the procedure by infiltrating a mixture of local anesthetics in and around the marked lipomatous. It was easily palpable. A vertical incision was created directly over the palpable mass and carried through the skin and subcutaneous tissue. The mass was then carefully identified and popped into the field without any carefully identified vascular pedicle. The posterior portion of the capsule was then removed with cautery and sent with the specimen. The anterior portion of the capsule was much less well circumscribed. The wound was checked for hemostasis. It was irrigated with saline solution and closed in 2 layers with Vicryl Monocryl suture. All sponge, needle, and instrument counts were correct at the conclusion of the case. Patient was allowed awaken from anesthesia without difficulty and taken to the postanesthesia care unit in good condition.
[2021-11-15] MEDS ORDERED: SUGAMMADEX 200 MG/2 ML VIAL IVP ONE (09:57)
[2021-11-15 11:05] VITALS: BP 129/62
--- NOTE | 2021-11-15 14:49 | ANESTHESIA POST OP EVALUATION ---
Anesthesia Post Eval - Post Anesthesia Eval Vitals: Last Vital Signs Temp 36.7 C 11/15/21 11:03 Pulse 73 11/15/21 11:03 Resp 16 11/15/21 11:03 BP 129/62 11/15/21 11:03 Pulse Ox 93 11/15/21 11:03 CV Function Including HR & BP: Stable Pain Control: Satisfactory Nausea & Vomiting: Negative Mental Status: Baseline Respiratory Status: Airway Patent Hydration Status: Satisfactory Anesthesia Complications: None
== END 2021-11-15 07:51 | disposition home or self-care (01) ==
LOC: SDS 07:50
PROVIDERS: ATTEND Surgery
PROC: 0JB70ZZ Excision of Back Subcutaneous Tissue and Fascia, Open Approach (ICD-10-PCS; principal; 2021-11-15 09:00)
DX: D17.1 Benign lipomatous neoplasm of skin and subcutaneous tissue of trunk (principal); E66.9 Obesity, unspecified; J45.909 Unspecified asthma, uncomplicated; Z68.34 Body mass index [BMI] 34.0-34.9, adult
CPT/HCPCS: 21930; J0690; J7120

== ENCOUNTER 2022-03-07 15:15 | Outpatient (CLI) | payer OTHER ==
[2022-03-07 18:13] LABS: CALCIUM 10.5 mg/dL (8.5-10.3); CREATININE 0.9 mg/dL (0.4-1.0); POTASSIUM 3.4 mmol/L (3.5-5.0)
== END 2022-03-07 15:16 | disposition home or self-care (01) ==
LOC: LAB.N 15:15
PROVIDERS: ATTEND Physician Assistant Medical
DX: E87.6 Hypokalemia (principal)
CPT/HCPCS: 36415; 80048

== ENCOUNTER 2022-04-11 15:27 | Outpatient (CLI) | payer OTHER ==
--- NOTE | 2022-04-12 12:11 | Mammography Report ---
BILATERAL DIGITAL SCREENING MAMMOGRAM 3D/2D WITH EXAGGERATED CC: 04/11/2022 CLINICAL: Routine screening. Comparison is made to exams dated: 11/25/2019 mammogram, 04/07/2016 mammogram, and 05/16/2013 mammogra m - [facility]. There are scattered areas of fibroglandular density in both breasts (category b / 25%-50% glandular t issue). There is a developing new 1.4 cm oval focal asymmetry with an indistinct margin in the right breast a t 11 o'clock anterior depth. No other significant masses, calcifications, or other findings are seen in either breast. IMPRESSION: INCOMPLETE: NEEDS ADDITIONAL IMAGING EVALUATION The developing new 1.4 cm oval focal asymmetry in the right breast is indeterminate. Additional view s with possible ultrasound are recommended. Based on the Tyrer Cuzick model (a risk assessment model) the patients lifetime risk is 2.9% and her 10 year risk is 1.2%. According to the ACR, ACS, and NCCN guidelines, an annual breast MRI exam damian g with mammogram is recommended if the patients lifetime risk is 20% or greater. This exam was interpreted at Station ID: [id number]. NOTE: For mammograms, a report in lay terms will be sent to the patient. Approximately 15% of breast malignancies will not be visualized mammographically. In the management of a palpable breast mass, a negative mammogram must not discourage biopsy of a clinically suspicious lesion. Electronically Signed By: Georgina olivarez/roman:04/12/2022 09:44:45 ACR BI-RADS Category 0: Incomplete 3340F PARENCHYMAL PATTERN: (A) - The breast(s) demonstrate(s) scattered fibroglandular densities. BI-RADS CATEGORY: (0) - 0 Mammo and [place] [id number] Immediate follow-up LATERALITY: (B)
== END 2022-04-11 15:28 | disposition home or self-care (01) ==
LOC: DI 15:27
DX: Z12.31 Encounter for screening mammogram for malignant neoplasm of breast (principal); R92.8 Other abnormal and inconclusive findings on diagnostic imaging of breast

== ENCOUNTER 2022-04-25 15:01 | Outpatient (CLI) | payer OTHER ==
[2022-04-25 18:12] LABS: CALCIUM 10.2 mg/dL (8.5-10.3); POTASSIUM 3.1 mmol/L (3.5-5.0)
== END 2022-04-25 15:02 | disposition home or self-care (01) ==
LOC: LAB.N 15:01
PROVIDERS: ATTEND Physician Assistant Medical
DX: E87.6 Hypokalemia (principal)
CPT/HCPCS: 36415; 80048

== ENCOUNTER 2022-06-22 14:58 | Outpatient (CLI) | payer OTHER ==
[2022-06-22 20:15] LABS: CALCIUM 10.2 mg/dL (8.5-10.3); CREATININE 0.9 mg/dL (0.4-1.0)
== END 2022-06-22 14:59 | disposition home or self-care (01) ==
LOC: LAB.N 14:58
PROVIDERS: ATTEND Physician Assistant Medical
DX: E87.6 Hypokalemia (principal)
CPT/HCPCS: 36415; 80048

== ENCOUNTER 2022-08-01 15:29 | Outpatient (CLI) | payer OTHER ==
[2022-08-02 17:46] LABS: CALCIUM 10.2 mg/dL (8.5-10.3); CREATININE 0.9 mg/dL (0.4-1.0); POTASSIUM 3.6 mmol/L (3.5-5.0)
== END 2022-08-01 15:30 | disposition home or self-care (01) ==
LOC: LAB.N 15:29
PROVIDERS: ATTEND Physician Assistant Medical
DX: E87.6 Hypokalemia (principal)
CPT/HCPCS: 36415; 80048

== ENCOUNTER 2023-01-16 17:22 | Emergency (ER) | payer OTHER ==
--- NOTE | 2023-01-16 17:41 | ED Physician Documentation ---
PD HPI CHEST PAIN - Stated complaint Stated Complaint: CHEST PX - Chief complaint Chief Complaint: Cardiac - History obtained from History obtained from: Patient - History of Present Illness Timing - onset: Yesterday Pain level max: 1 Pain level now: 0 Associated symptoms: No: Diaphoresis, Nausea, Vomiting, Feeling faint / dizzy, General Weakness, Palpitations Recently seen: Not recently seen - Additional information Additional information: Patient is a 62-year-old female who presents to the emergency department stating that she has "twinges" of chest pain since yesterday. Last for a few seconds at a time. Mainly on the right upper chest. No difficulty breathing. No weakness, no palpitations, no nausea, vomiting. Nothing really makes it better or worse. No change with exertion. She went to the walk-in clinic and was sent here for evaluation. Review of Systems Constitutional: denies: Fever, Chills Nose: denies: Rhinorrhea / runny nose, Congestion Cardiac: denies: Palpitations Respiratory: denies: Dyspnea, Cough GI: denies: Abdominal Pain, Nausea, Vomiting, Diarrhea Skin: denies: Rash Musculoskeletal: denies: Neck pain, Back pain Neurologic: denies: Headache PD PAST MEDICAL HISTORY - Past Medical History Cardiovascular: Hypertension Respiratory: Asthma Endocrine/Autoimmune: None GI: GERD, Hiatal hernia, Colon polyps, C.difficile, Diverticulitis, Other HIDE TRIMMER: Endometriosis : None HEENT: Chronic vision loss, Chronic sinusitis Psych: Anxiety, Panic attacks Musculoskeletal: Osteoarthritis, Fibromyalgia, Scoliosis, Chronic back pain Derm: None - Past Surgical History Past Surgical History: Yes General: Colonoscopy, EGD Ortho: Other /HIDE TRIMMER: Hysterectomy, Oophrectomy - Present Medications Home Medications: Ambulatory Orders Medication Instructions Recorded Confirmed Gabapentin [Neurontin] 300 mg PO TID 10/24/12 11/15/21 Dicyclomine HCl [Bentyl] 10 mg PO Q6-8H PRN #30 capsule 11/12/12 11/15/21 busPIRone [Buspar] 7.5 mg PO BID 10/15/15 11/15/21 Losartan/Hydrochlorothiazide 1 tab PO DAILY 07/12/18 11/15/21 [Losartan-Hctz 100-12.5 mg Tab] Diclofenac Sodium [Voltaren 20 gm TP PRN PRN 06/04/21 11/08/21 Arthritis Pain] Omeprazole Magnesium [Prilosec] 20 mg PO DAILY 11/08/21 11/15/21 Semaglutide [Wegovy] 1 mg SQ OAW 11/08/21 11/08/21 oxyCODONE [Roxicodone] 5 mg PO Q4-6H PRN #5 tablet 11/15/21 - Allergies Allergies/Adverse Reactions: Allergies Allergy/AdvReac Type Severity Reaction Status Date / Time sulfamethoxazole Allergy Intermediate Rash Verified 01/16/23 17:27 [From Septra] trimethoprim [From Febra] Allergy Intermediate Rash Verified 01/16/23 17:27 almond Allergy Unknown Verified 01/16/23 17:27 hazelnut Allergy Anaphylaxis Verified 01/16/23 17:27 sucralose Allergy diarrhea Verified 01/16/23 17:27 [From Splenda (sucralose)] naproxen AdvReac Intermediate muscle Verified 01/16/23 17:27 tightness amoxicillin [From Augmentin] AdvReac Unknown Verified 01/16/23 17:27 clavulanic acid AdvReac Unknown Verified 01/16/23 17:27 [From Augmentin] lavender (Lavandula AdvReac Unknown Verified 01/16/23 17:27 angustifolia) - Social History Does the pt smoke?: No Smoking Status: Never smoker Does the pt drink ETOH?: No Does the pt have substance abuse?: No - Immunizations Immunizations are current?: Yes - POLST Patient has POLST: No PD ED PE NORMAL - Vitals Vital signs reviewed: Yes - General General: Alert and oriented X 3, No acute distress - HEENT HEENT: Moist mucous membranes - Neck Neck: Supple, no meningeal sign - Cardiac Cardiac: RRR, No murmur, Strong equal pulses - Respiratory Respiratory: No respiratory distress, Clear bilaterally, Other (No chest wall tenderness) - Abdomen Abdomen: Soft, Non tender, Non distended - Derm Derm: Warm and dry, No rash - Extremities Extremities: No edema, No calf tenderness / cord - Neuro Neuro: Alert and oriented X 3 - Psych Psych: Normal mood, Normal affect Results - Vitals Vitals: Vital Signs - 24 hr 01/16/23 01/16/23 01/16/23 17:27 18:02 18:35 Temperature 36.5 C Heart Rate 80 70 Respiratory 16 18 Rate Blood Pressure 153/85 H 117/66 Blood Pressure 125/66 [Left] O2 Saturation 100 99 Oxygen O2 Source Room air - EKG (time done) 1731 EKG releavant findings:: EKG personally interpreted by author of this note. Relevant findings are: Rate: Rate (enter#) (68) Rhythm: NSR [place]: Normal Intervals: Normal RI, Wide QRS Ischemia: Normal ST segments - Labs Labs: Laboratory Tests 01/16/23 01/16/23 01/16/23 18:00 18:00 18:00 WBC 10.4 RBC 4.77 Hgb 14.5 Hct 42.3 MCV 88.7 MCH 30.4 MCHC 34.3 RDW 12.4 Plt Count 325 MPV 9.4 Neut # (Auto) 6.9 H Lymph # (Auto) 2.6 Cassia # (Auto) 0.6 Eos # (Auto) 0.1 Baso # (Auto) 0.1 Absolute Nucleated RBC 0.00 Nucleated RBC % 0.0 Sodium 137 Potassium 3.1 L Chloride 99 L Carbon Dioxide 30 Anion Gap 8.0 BUN 20 Creatinine 1.0 Estimated GFR (MDRD) 56 L Glucose 95 Calcium 10.7 H Total Bilirubin 0.6 AST 17 ALT 12 Alkaline Phosphatase 78 Troponin I High Sens 3.4 Total Protein 7.4 Albumin 4.4 Globulin 3.0 Albumin/Globulin Ratio 1.5 Lipase 60 - Rads (name of study) cxr Relevant Findings:: Final report received, See rad report PD Medical Decision Making - ED course Complexity details: reviewed results, re-evaluated patient, considered differential, d/w patient ED course: Patient is a 62-year-old female who presents to the emergency department with twinges of chest pain over the past 24 hours, last for a few seconds to a few minutes. No acute findings on EKG, laboratory testing. High-sensitivity troponin is negative. Chest x-ray is negative. No PE risk factors. No hypoxia. No respiratory distress. We will have the patient follow-up with her doctor for a cardiac stress test and further care. Patient will return if she worsens. Patient counseled regarding signs and symptoms for which I believe and urgent re-evaluation would be necessary. Patient with good understanding of and agreement to plan and is comfortable going home at this time This document was made in part using voice recognition software. While efforts are made to proofread this document, sound alike and grammatical errors may occur. Departure - Departure Disposition: 01 Home, Self Care Clinical Impression: Chest pain Qualifiers: Chest pain type: unspecified Qualified Code(s): R07.9 - Chest pain, unspecified Condition: Good Instructions: ED Chest Pain Atypical Unkn Cause Follow-Up: Sandie Barnes PA-C [Primary Care Provider] - Within 3 Days Comments: The cause of your chest pain is unclear. There is no evidence of a heart attack today. Your EKG does not show any acute abnormalities, your troponin is negative. Your x-ray is normal. I would use Motrin or Tylenol as needed for pain and please follow-up with your doctor for further care, they can consider a cardiac stress test at that point as well. Forms: PCP List Discharge Date/Time: 01/16/23 18:55
[2023-01-16 18:08] LABS: BASOPHILS # (AUTO) 0.1 10^3/uL (0.0-0.1); BASOPHILS % (AUTO) 0.6 %; EOSINOPHILS # (AUTO) 0.1 10^3/uL (0.0-0.7); EOSINOPHILS % (AUTO) 1.3 %; HCT - HEMATOCRIT 42.3 % (37.0-47.0); HGB - HEMOGLOBIN 14.5 g/dL (12.0-16.0); LYMPHOCYTES # (AUTO) 2.6 10^3/uL (1.5-3.5); LYMPHOCYTES % (AUTO) 25.4 %; MEAN CORPUSCULAR HEMOGLOBIN 30.4 pg (27.0-31.0); MEAN CORPUSCULAR HGB CONC 34.3 g/dL (32.0-36.0); MEAN CORPUSCULAR VOLUME 88.7 fL (81.0-99.0); MEAN PLATELET VOLUME 9.4 fL (7.9-10.8); MONOCYTES # (AUTO) 0.6 10^3/uL (0.0-1.0); MONOCYTES % (AUTO) 6.1 %; NEUTROPHILS # (AUTO) 6.9 10^3/uL (1.5-6.6); NEUTROPHILS % (AUTO) 66.3 %; PLT - PLATELET COUNT 325 10^3/uL (130-450); RED BLOOD COUNT 4.77 10^6/uL (4.20-5.40); RED CELL DISTRIBUTION WIDTH 12.4 % (12.0-15.0); WHITE BLOOD COUNT 10.4 x10^3/uL (4.8-10.8)
--- OUTSIDE RECORDS SUMMARY | 2023-01-16 18:11 | EXTERNAL MEDICAL SUMMARY RPT | Continuity of Care Document ---
Author Name Unknown Address [address] [place] [address] Phone Organization [facility] Address [address] [place] [address] Phone Care Team Providers Care Bioinformatics Specialist Name Role Phone Unavailable Unavailable Unavailable Nuzhat Hughes Unavailable Unavailable Allergies and Intolerances date description facility reaction severity (no date) Sulfa (Sulfonamide Antibiotics) [facility] (no reaction) (no severity) (no date) amoxicillin [facility] (no reaction) (no s everity) (no date) clavulanic acid [facility] (no reaction) ( no severity) (no date) levocarnitine [facility] (no reaction) (no severity) (no date) naproxen [facility] (no reaction) (no se verity) Medications date description facility 2022-11-09 00:00 Triamterene-Hydrochlorothiazid [facility] 2022-11-09 00:[address] [facility] 2022-11-09 00:[address] [facility] 2022-11-09 00:[address] [facility] Problems date description facility 2022-11-09 07:27 Blepharochalasis left upper eye lid [facility] 2022-11-09 07:55 Blepharochalasis left upper eye [facility] 2022-11-09 10:54 Blepharochalasis [facility] eye [facility] Procedures date description facility 2022-11-09 00:00 Blepharoplasty One Lid Standard (Bilateral) [facility] Results/Labs test date facility value unit notes Social History date description facility 2022-11-09 00:00 Never smoked tobacco (finding) [facility] Vital Signs date measurement value units 2022-11-09 00:00 BMI 26.2 kg/m2 2022-11-09 00:00 BP_diastolic 71 mmHg 2022-11-09 00:00 BP_systolic 108 mmHg 2022-11-09 00:00 heart_rate 73 /min 2022-11-09 00:00 height_metric 160.02 cm 2022-11-09 00:00 height_standard 63 in 2022-11-09 00:00 o2_saturation 98 % 2022-11-09 00:00 respiration_rate 12 /min 2022-11-09 00:00 temperature_metric 36.5 C 2022-11-09 00:00 temperature_standard 97.7 F 2022-11-09 00:00 weight_metric 67.13 kg 2022-11-09 00:00 weight_standard 148 lb
[2023-01-16 18:28] LABS: ALBUMIN 4.4 g/dL (3.2-5.5); ALBUMIN/GLOBULIN RATIO 1.5 (1.0-2.2); BILIRUBIN,TOTAL 0.6 mg/dL (0.2-1.0); CALCIUM 10.7 mg/dL (8.5-10.3); POTASSIUM 3.1 mmol/L (3.5-4.5); TOTAL PROTEIN 7.4 g/dL (6.4-8.9)
--- NOTE | 2023-01-16 18:32 | XRAY Report ---
PROCEDURE: Chest 1 View X-Ray INDICATIONS: Chest pain TECHNIQUE: One view of the chest was acquired. COMPARISON: None. FINDINGS: Surgical changes and devices: None. Lungs and pleura: No pleural effusions or pneumothorax. Lungs are clear. Mediastinum: Mediastinal contours appear normal. Heart size is mildly prominent. Bones and chest wall: No suspicious bony lesions. Overlying soft tissues appear unremarkable. IMPRESSION: No acute cardiopulmonary process. Reviewed by: Nelly Quigley MD on 01/16/2023 6:31 PM PDT Approved by: Nelly Quigley MD on 01/16/2023 6:31 PM PDT Station ID: [id number]
[2023-01-16 18:42] VITALS: BP 117/66
== END 2023-01-16 18:55 | disposition home or self-care (01) ==
LOC: ED 17:22
DX: R07.9 Chest pain, unspecified (principal); I10 Essential (primary) hypertension; Z79.899 Other long term (current) drug therapy
CPT/HCPCS: 36415; 80053; 83690; 84484; 85025; 93005; 99283; 99284

== ENCOUNTER 2023-03-31 09:47 | Outpatient (CLI) | payer OTHER ==
[2023-03-31 11:46] LABS: BASOPHILS # (AUTO) 0.1 10^3/uL (0.0-0.1); BASOPHILS % (AUTO) 0.7 %; EOSINOPHILS # (AUTO) 0.1 10^3/uL (0.0-0.7); EOSINOPHILS % (AUTO) 1.6 %; HCT - HEMATOCRIT 43.8 % (37.0-47.0); LYMPHOCYTES # (AUTO) 3.3 10^3/uL (1.5-3.5); LYMPHOCYTES % (AUTO) 40.9 %; MEAN CORPUSCULAR HEMOGLOBIN 30.1 pg (27.0-31.0); MEAN CORPUSCULAR HGB CONC 34.2 g/dL (32.0-36.0); MEAN PLATELET VOLUME 9.4 fL (7.9-10.8); MONOCYTES # (AUTO) 0.4 10^3/uL (0.0-1.0); MONOCYTES % (AUTO) 5.1 %; NEUTROPHILS # (AUTO) 4.1 10^3/uL (1.5-6.6); NEUTROPHILS % (AUTO) 51.3 %; PLT - PLATELET COUNT 396 10^3/uL (130-450); RED BLOOD COUNT 4.98 10^6/uL (4.20-5.40); RED CELL DISTRIBUTION WIDTH 12.5 % (12.0-15.0); WHITE BLOOD COUNT 8.1 x10^3/uL (4.8-10.8)
[2023-03-31 12:30] LABS: ALBUMIN 4.4 g/dL (3.2-5.5); ALBUMIN/GLOBULIN RATIO 1.7 (1.0-2.2); ALKALINE PHOSPHATASE 79 IU/L (42-121); ALT ALANINE AMINOTRANSFERASE 12 IU/L (10-60); AST ASPARTATE AMINOTRANSFERASE 16 IU/L (10-42); BILIRUBIN,TOTAL 0.8 mg/dL (0.2-1.0); BUN - BLOOD UREA NITROGEN 11 mg/dL (6-20); CALCIUM 10.5 mg/dL (8.5-10.3); CARBON DIOXIDE - CO2 31 mmol/L (21-32); CHLORIDE 100 mmol/L (101-111); CHOL/HDL RATIO 2.8 (<4.4); CHOLESTEROL 223 mg/dL; CREATININE 0.9 mg/dL (0.6-1.3); GFR - MDRD 63 (>89); GLUCOSE 87 mg/dL (74-104); HDL CHOLESTEROL 79 mg/dL; LDL CHOLESTEROL,CALCULATED 121 mg/dL; LDL/HDL RATIO 1.5 (<4.4); POTASSIUM 3.8 mmol/L (3.5-4.5); SODIUM 137 mmol/L (135-145); TRIGLYCERIDES 115 mg/dL (48-352); VLDL CHOLESTEROL 23 mg/dL
== END 2023-03-31 09:48 | disposition home or self-care (01) ==
LOC: LAB.N 09:47
PROVIDERS: ATTEND Physician Assistant Medical
DX: Z00.00 Encounter for general adult medical examination without abnormal findings (principal); E78.5 Hyperlipidemia, unspecified; D50.9 Iron deficiency anemia, unspecified
CPT/HCPCS: 36415; 80053; 80061; 83721; 84443; 85025

== ENCOUNTER 2023-05-02 16:00 | Outpatient (CLI) | payer OTHER ==
[2023-05-03 09:50] LABS: BACTERIAL VAGINOSIS DNA NEGATIVE (NEGATIVE); CANDIDA GLABRATA DNA NEGATIVE (NEGATIVE); CANDIDA GROUP DNA NEGATIVE (NEGATIVE); CANDIDA KRUSEI DNA NEGATIVE (NEGATIVE); TRICHOMONAS VAGINALIS DNA NEGATIVE (NEGATIVE)
== END 2023-05-02 16:15 | disposition home or self-care (01) ==
LOC: LAB.N 16:00
PROVIDERS: ATTEND Nurse Practitioner
DX: L29.8 Other pruritus (principal)
CPT/HCPCS: 81514

== ENCOUNTER 2023-11-22 16:08 | Emergency (ER) | payer OTHER ==
--- NOTE | 2023-11-22 16:22 | ED Physician Documentation ---
PD HPI HEAD INJURY - Stated complaint Stated Complaint: GLF - Chief complaint Chief Complaint: Trauma Hd/Nk - History obtained from History obtained from: Patient - History of Present Illness Mechanism of head injury: Fell (tripped and fell, striking bridge of nose, forehead on boject, with dazed and frontal headache and nose pain. No nosebleed. Feeling nauseated with some lightheaded. No blood thinners but having mild concussive symptoms.) Timing - onset: Today Location of injury: Front Quality of pain: Throbbing, Aching Associated symptoms: AMS (dazed initially and feeling lightheaded.), Nausea / vomiting. No: LOC, Neck pain, Paresthesias Symptoms worsen with: Palpation, Movement Contributing factors: No: Anticoagulated, Intoxicated Similar symptoms before: Has not had sx before Review of Systems Constitutional: denies: Fever, Chills Eyes: denies: Loss of vision, Decreased vision Nose: denies: Rhinorrhea / runny nose, Congestion Throat: denies: Sore throat Respiratory: denies: Cough PD PAST MEDICAL HISTORY - Past Medical History Past Medical History: Yes Cardiovascular: Hypertension Respiratory: Asthma Endocrine/Autoimmune: None GI: GERD, Hiatal hernia, Colon polyps, C.difficile, Diverticulitis, Other 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: Endometriosis : None HEENT: Chronic vision loss, Chronic sinusitis Psych: Anxiety, Panic attacks Musculoskeletal: Osteoarthritis, Fibromyalgia, Scoliosis, Chronic back pain Derm: None - Past Surgical History Past Surgical History: Yes General: Colonoscopy, EGD Ortho: Other /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: Hysterectomy, Oophrectomy - Present Medications Home Medications: Ambulatory Orders Medication Instructions Recorded Confirmed Gabapentin [Neurontin] 300 mg PO TID 10/24/12 11/22/23 busPIRone [Buspar] 7.5 mg PO BID 10/15/15 11/22/23 Triamterene/Hydrochlorothiazid 1 each PO DAILY 11/22/23 11/22/23 [Triamterene-Hctz 37.5-25 mg Cp] buPROPion HCL [Bupropion HCl Sr] 100 mg PO DAILY 11/22/23 11/22/23 - Allergies Allergies/Adverse Reactions: Allergies Allergy/AdvReac Type Severity Reaction Status Date / Time sulfamethoxazole Allergy Intermediate Rash Verified 11/22/23 16:47 [From ] trimethoprim [From ] Allergy Intermediate Rash Verified 11/22/23 16:47 almond Allergy Unknown Verified 11/22/23 16:47 hazelnut Allergy Anaphylaxis Verified 11/22/23 16:47 sucralose Allergy diarrhea Verified 11/22/23 16:47 [From Splenda (sucralose)] naproxen AdvReac Intermediate muscle Verified 11/22/23 16:47 tightness amoxicillin [From Augmentin] AdvReac Unknown Verified 11/22/23 16:47 clavulanic acid AdvReac Unknown Verified 11/22/23 16:47 [From Augmentin] lavender (Lavandula AdvReac Unknown Verified 11/22/23 16:47 angustifolia) - Social History Does the pt smoke?: No Smoking Status: Never smoker Does the pt drink ETOH?: No Does the pt have substance abuse?: No - Immunizations Immunizations are current?: Yes - POLST Patient has POLST: No PD ED PE NORMAL - Vitals Vital signs reviewed: Yes - General General: Alert and oriented X 3, No acute distress, Well developed/nourished - HEENT HEENT: PERRL, EOMI, Other (nasal bones firm and straight. Tender at bridge and forehead. ) - Neck Neck: Supple, no meningeal sign, No bony TTP (some tender at right SCM muscle but none close to midline. ), No adenopathy Results - Vitals Vitals: Vital Signs - 24 hr 11/22/23 11/22/23 16:16 18:13 Temperature 36.8 C 36.8 C Heart Rate 69 67 Respiratory 16 16 Rate Blood Pressure 140/80 H 127/62 O2 Saturation 100 99 Oxygen O2 Source Room air - Rads (name of study) head CT Relevant Findings:: Prelim report reviewed, EMP independent interpretation of test (no ICH nor acute injury. visualized facial bones without fracture. ) PD Medical Decision Making - ED course Complexity details: reviewed results (Normal head CT without ICH nor visualized fractures on partial facial bones.), considered differential (fell and struck head/face. CLinically no nasal fracture. Has mild concussive symtpms. Can get CT as cannot exclude ICH based on scoring systems due to age (NEXUS II or [place] head rules). ), d/w patient Departure - Departure Disposition: 01 Home, Self Care Clinical Impression: Facial contusion, Frontal headache, Accidental fall Condition: Stable Record reviewed to determine appropriate education?: Yes Follow-Up: Sandie Barnes PA-C [Primary Care Provider] - Comments: Your CT scan does not show any signs of bleeding or swelling in the cranial compartment. It does incorporate some of the facial bones and there is no obvious facial bone fracture seen. I printed a copy of the CT report for you. It still can to be sore in that area. You can use some ice or cool towels to the area periodically. There is no signs of deviation of the nose bones and clinically it does not feel broken. You will still likely have some soreness in that area and Tylenol every 4-6 hours if needed is good. Forms: PCP List Discharge Date/Time: 11/22/23 18:14
[2023-11-22] MEDS: ACETAMINOPHEN 500 MG TABLET PO STA (16:45)
--- NOTE | 2023-11-22 17:16 | CT Report ---
PROCEDURE: Head WO INDICATIONS: fall, struck nose/face, with mild concussive sxs. TECHNIQUE: Noncontrast 4.5 mm thick angled axial sections acquired from the foramen magnum to the vertex. For r adiation dose reduction, the following was used: automated exposure control, adjustment of mA and/or kV according to patient size. COMPARISON: None. FINDINGS: Image quality: Excellent. CSF spaces: Basal cisterns are patent. No extra-axial fluid collections. Ventricles are normal in size and shape. Brain: No midline shift. No intracranial masses or hemorrhage. Stokes-white matter interface is norm al. Skull and face: Calvarium and visualized facial bones are intact, without suspicious lesions. Sinuses: Visualized sinuses and mastoids are clear. IMPRESSION: No acute intracranial pathology. Reviewed by: Nelly Quigley MD on 11/22/2023 5:15 PM PDT Approved by: Nelly Quigley MD on 11/22/2023 5:15 PM PDT Station ID: [id number]
[2023-11-22 18:23] VITALS: BP 127/62; O2SAT 99
== END 2023-11-22 18:14 | disposition home or self-care (01) ==
LOC: ED 16:08
DX: S00.83XA Contusion of other part of head, initial encounter (principal); W01.0XXA Fall on same level from slipping, tripping and stumbling without subsequent striking against object, initial encounter; R51.9 Headache, unspecified; I10 Essential (primary) hypertension; J45.909 Unspecified asthma, uncomplicated; Z86.010 Personal history of colon polyps; M79.7 Fibromyalgia; Z79.899 Other long term (current) drug therapy
CPT/HCPCS: 70450; 99283; 99284; A9270

== ENCOUNTER 2024-01-10 09:37 | Outpatient (CLI) | payer OTHER ==
--- NOTE | 2024-01-10 10:29 | CT Report ---
PROCEDURE: Head WO INDICATIONS: CONCUSSION TECHNIQUE: Noncontrast 4.5 mm thick angled axial sections acquired from the foramen magnum to the vertex. For r adiation dose reduction, the following was used: automated exposure control, adjustment of mA and/or kV according to patient size. COMPARISON: 11/22/2023. FINDINGS: Image quality: Excellent. CSF spaces: Basal cisterns are patent. No extra-axial fluid collections. Ventricles are normal in size and shape. Brain: No midline shift. No intracranial masses or hemorrhage. Stokes-white matter interface is norm al. Skull and face: Calvarium and visualized facial bones are intact, without suspicious lesions. Sinuses: Visualized sinuses and mastoids are clear. IMPRESSION: No acute intracranial pathology. Reviewed by: Alejandro Anne MD on 01/10/2024 10:27 AM PDT Approved by: Alejandro Anne MD on 01/10/2024 10:27 AM PDT Station ID: [id number]
== END 2024-01-10 09:38 | disposition home or self-care (01) ==
LOC: DI 09:37
PROVIDERS: ATTEND Physician Assistant Medical
DX: S06.0X0D Concussion without loss of consciousness, subsequent encounter (principal)